=== PATIENT | male | born 1945 | race Caucasian/White ===

== ENCOUNTER 2017-05-06 17:46 | Observation (INO) | payer OTHER ==
[~2017-05-06] VITALS: Ht 188 cm; Wt 127.5 kg
[2017-05-06 18:20] VITALS: BP 113/72
[2017-05-06] MEDS ORDERED: PLEASE ENTER HEIGHT AND WEIGHT MC SCH (20:00)
[2017-05-06] MEDS ORDERED: ACETAMINOPHEN 325 MG TABLET PO PRN (20:00)
[2017-05-06] MEDS ORDERED: hydrALAzine 20 MG/ML, 1ML IVPush PRN (20:00)
[2017-05-06] MEDS ORDERED: ENOXAPARIN 40 MG/0.4 ML SQ SCH (20:00)
[2017-05-06] MEDS ORDERED: ONDANSETRON 2MG/ML, 2ML IVPush PRN (20:00)
[2017-05-06] MEDS ORDERED: PLEASE ENTER ALLERGIES MC SCH (20:00)
[2017-05-06] MEDS ORDERED: morphine SULFATE 10 MG/ML, 1ML IVPush PRN (20:00)
[2017-05-06] MEDS ORDERED: NITROGLYCERIN 0.4 MG/SPRAY SL PRN (20:30)
[2017-05-06] MEDS ORDERED: NITROGLYCERIN 0.4 MG BOTTLE (25 TABS) SL PRN (20:30)
[2017-05-06] MEDS ORDERED: KETOROLAC 30 MG/1 ML ONE (21:24)
[2017-05-06] MEDS: SODIUM CHLORIDE 0.9% 1,000 ML IV SCH (21:26)
[2017-05-06] MEDS ORDERED: KETOROLAC 30 MG/1 ML IVPush ONE (21:30)
[2017-05-06 21:40] LABS: TROPONIN I 0.023 ng/mL (0.000-0.045)
[2017-05-07] MEDS ORDERED: KETOROLAC 30 MG/1 ML IVPush PRN (03:30)
[2017-05-07 04:56] VITALS: BP 131/83
[2017-05-07 05:03] LABS: BASOPHILS # (AUTO) 0.04 x10^3/uL (0-0.1); BASOPHILS % (AUTO) 0 % (0-1); EOSINOPHILS # (AUTO) 0.25 x10^3/uL (0-0.4); EOSINOPHILS % (AUTO) 3 % (1-7); LYMPHOCYTES # (AUTO) 1.54 x10^3/uL (1-3.4); LYMPHOCYTES % (AUTO) 15 % (22-44); MD NO; MEAN CORPUSCULAR HEMOGLOBIN 29.8 pg (27.5-34.5); MEAN CORPUSCULAR HGB CONC 34.3 g/dL (33.2-36.2); MEAN CORPUSCULAR VOLUME 87.1 fL (81-97); MEAN PLATELET VOLUME 7.8 fL (7.4-10.4); MONOCYTES # (AUTO) 0.95 x10^3/uL (0.2-0.8); MONOCYTES % (AUTO) 9 % (2-9); NEUTROPHILS # (AUTO) 7.28 x10^3/uL (1.8-6.8); NEUTROPHILS % (AUTO) 72 % (42-75); PLATELET COUNT 218 x10^3/uL (130-400); RED BLOOD COUNT 4.58 x10^6/uL (4.38-5.82); RED CELL DISTRIBUTION WIDTH 15.2 % (9.4-14.8)
[2017-05-07 05:15] LABS: ANION GAP 5 mmol/L (5-15); CALCIUM 8.1 mg/dL (8.5-10.1); CHLORIDE 109 mmol/L (98-107)
[2017-05-07 05:21] LABS: CHOL/HDL RATIO 3.3; CHOLESTEROL, TOTAL 118 mg/dL (140-239); CREATININE 0.97 mg/dL (0.7-1.3); HDL CHOL % 31 % (26-37); HDL CHOLESTEROL (DIRECT) 36 mg/dL (40-60); LDL CHOLESTEROL,CALCULATED 73 mg/dL (54-169); TRIGLYCERIDES 43 mg/dL (50-200); VLDL CHOLESTEROL 9 mg/dL (0-25)
[2017-05-07 06:44] LABS: TROPONIN I 0.183 ng/mL (0.000-0.045)
[2017-05-07] MEDS: SODIUM CHLORIDE 0.9% 1,000 ML IV SCH (07:05)
[2017-05-07] MEDS ORDERED: REGADENOSON 0.4 MG/5 ML SYRINGE ONE (08:16)
[2017-05-07 08:28] VITALS: BP 153/87
[2017-05-07] MEDS ORDERED: IBUP-1223 PO (10:03)
[2017-05-07 12:21] VITALS: BP 145/90
== END 2017-05-07 13:44 | disposition home or self-care (01) ==
LOC: INTOOBSV 18:19 → 5SO 18:19 → UNDODISIN 05-07 13:44
PROVIDERS: ADMIT Hospitalist; ATTEND Hospitalist
DX: R07.9 Chest pain, unspecified (principal)
CPT/HCPCS: 36415; 78452; 80048; 80061; 83735; 84100; 84484; 85025; 93005; 93017; 96361; 96374; A9502; C9898; G0378; J1885; J2785; J7030